=== PATIENT | male | born 1940 | race Two or more races ===

== ENCOUNTER 2017-01-30 12:55 | Emergency (ER) | payer MEDICARE, BC ==
[~2017-01-30] VITALS: Ht 175.3 cm; Wt 74.8 kg
[2017-01-30 13:14] VITALS: BP 137/72
[2017-01-30] MEDS ORDERED: ANUSOL-HC30 GM RC (13:36)
[2017-01-30] MEDS ORDERED: COLACE100 MG ORAL (13:36)
[2017-01-30] MEDS ORDERED: TRAMADOL HCL50 MG ORAL (13:36)
[2017-01-30 13:44] VITALS: BP 137/72
--- NOTE | 2017-01-30 18:58 | Emergency Room Report ---
History of Present Illness General Chief Complaint: Pain Source: Patient Present Illness HPI The patient is a 76-year-old female presenting for possible hemorrhoids. The patient states that he has been having a sharp rectal pain for the past 2 days described as a 10 out of 10 sensation. Worse with defecation. He denies constipation. He admits to having bright red blood on toilet paper. He denies any radiating pain or other symptoms including N, V, F, abd pain, melena, diarrhea Allergies: Coded Allergies: No Known Allergies (Unverified , 01/30/17) Patient History Past Medical History: see triage record Pertinent Family History: none Reviewed Nursing Documentation: PMH: Agreed, PSxH: Agreed Nursing Documentation-PMH Past Medical History: No History, Except For Hx Hypertension: Yes Review of Systems All Other Systems: negative except mentioned in HPI Physical Exam Vital Signs Date Time Temp Pulse Resp B/P Pulse Ox O2 Delivery O2 Flow Rate FiO2 01/30/17 13:01 98.1 76 14 137/72 97 Room Air Sp02 EP Interpretation: reviewed, normal General Appearance: no apparent distress, alert, GCS 15, non-toxic Head: normocephalic, atraumatic Eyes: bilateral eye PERRL, bilateral eye normal inspection ENT: hearing grossly normal, normal pharynx, no angioedema, normal voice Neck: full range of motion, supple/symm/no masses Gastrointestinal: normal bowel sounds, non tender, soft, no guarding Rectal: normal rectal tone, hemorrhoids - external, tenderness - ext hemorrhoid Genitourinary: normal inspection, no CVA tenderness Musculoskeletal: back normal, gait/station normal, normal range of motion, non- tender Neurologic: alert, oriented x3, responsive, motor strength/tone normal, sensory intact, speech normal Psychiatric: judgement/insight normal, memory normal, mood/affect normal, no suicidal/homicidal ideation Skin: normal color, no rash, warm/dry, well hydrated Medical Decision Making PA Attestation Dr. Gao is my supervising physician. Patient management was discussed with my supervising physician Diagnostic Impression: Primary Impression: External hemorrhoid ER Course The patient is a 76-year-old female presenting for possible hemorrhoids Differential diagnoses considered include but not limited to internal hemorrhoid , external hemorrhoid, cellulitis, abscess, rectal prolapse PE: vitals WNL. NAD Abd is soft and non tender There is an external hemorrhoid. TTP. Normal rectal tone. No bleeding. No erythema. The patient will be discharged home with prescription for colace and anusol. He is given instructions for sitz bath. ER precautions given Last Vital Signs Date Time Temp Pulse Resp B/P Pulse Ox O2 Delivery O2 Flow Rate FiO2 01/30/17 13:44 98.1 76 14 137/72 97 Room Air Status: improved Disposition: HOME, SELF-CARE Condition: Improved Scripts Tramadol Hcl* (ULTRAM*) 50 Mg Tablet 50 MG ORAL Q6H Y for For Pain, #10 TAB 0 Refills Prov: STIVEN VASQUEZ 01/30/17 Hydrocortisone Hc 2.5% Cream (ANUSOL-HC 2.5% CREAM) Y Cr 30 GM RC TID, #30 GM Prov: STIVEN VASQUEZ 01/30/17 Docusate Sodium* (COLACE*) 100 Mg Capsule 100 MG ORAL TWICE A DAY, #30 CAP Prov: STIVEN VASQUEZ 01/30/17 Referrals: NON PHYSICIAN (PCP) Patient Instructions: How to Take a Sitz Bath, Hemorrhoids Additional Instructions: I discussed my findings with the patient. All questions and concerns have been answered. Treatment and medication compliance have been addressed. I advised the patient that they need to follow up with PMD in 3-5 days. Return to ED if symptoms worsen, new symptoms arise, or if needed for any reason. Patient verbalized understanding of discharge instructions. STIVEN VASQUEZ Jan 30, 2017 18:58
== END 2017-01-30 13:45 | disposition home or self-care (01) ==
LOC: EMR 13:10
DX: K64.4 Residual hemorrhoidal skin tags (principal); I10 Essential (primary) hypertension
CPT/HCPCS: 99284